=== PATIENT | female | born 1990 | race Caucasian/White ===

== ENCOUNTER → 2018-08-09 13:19 | Outpatient (CLI) | payer MEDICAID, SELFPAY ==
[2018-08-14 13:24] LABS: HPV Reflexed? NOT INDICATED
== END ==
PROVIDERS: Visit Provider Obstetrics & Gynecology
DX: Z12.4 Encounter for screening for malignant neoplasm of cervix (principal)
CPT/HCPCS: 88175; G0145

== ENCOUNTER 2020-02-07 16:14 | Emergency (ER) | payer MEDICAID, SELFPAY ==
[2020-02-07 16:16] VITALS: BP 140/75; PULSE 132; RESP 20; TEMP 37.1; O2SAT 98; BMI 27.0
--- NOTE | 2020-02-07 16:42 | ED.VIS.GEN ---
History of Present Illness Chief Complaint: Fever Detail of Chief Complaint: Fever, cough, sore throat Informant: Patient Onset: Days - 5 days Narrative: Patient reports becoming ill on February 01. She went to work on the , however left early due to body aches, fever, and weakness. She was seen by her doctor the following day. Rapid strep and influenza swabs were reportedly negative. Patient states that she is confident she had a fever on Monday and Monday, but did not have a thermometer at that time to check it. She felt somewhat better Monday so did go back to work. She bought a thermometer on that day and has been monitoring her temperature since that time. Over the past 2 days her temperature has not gotten above 99. Patient states she woke yesterday with no voice and still feeling very fatigued and weak. She continues to have cough with yellow to green sputum production. She has mild pain in the left lower lungs. Symptoms continued today. She tried a virtual online visit with [facility] and they encouraged her to come in because they were not able to auscultate her lungs and do a further exam. Patient does have 3 small children at home. She states her 5-year-old has developed a mild cough, but no one else has been ill. - Past Medical History (1) Anxiety Status: Chronic (2) Heartburn Status: Chronic (3) Migraines Status: Chronic Past Medical History - Allergies and Home Meds Allergies/Adverse Reactions: Allergies Iodinated Contrast Media [Iodinated Contrast Media - IV Dye] Allergy (Verified 02/07/20 16:15) Anaphylaxis latex Allergy (Verified 02/07/20 16:15) Rash mepivacaine HCl [From Carbocaine] Allergy (Verified 02/07/20 16:15) Swelling Primary Care Physician: Care Physician,No Primary [NON-STAFF] - Doctors: PCP in [place] Prior records reviewed: Yes Lives: With Family Smoking Status: Former smoker Review of Systems General: Reports: Chills, Fever, Subjective Eyes: Denies: Visual changes - bilaterally ENT: Reports: Sore throat. Denies: Bilateral ear pain Cardiovascular: Reports: Chest pain Respiratory: Reports: Dyspnea, Cough, Sputum Gastrointestinal: Reports: Vomiting - Posttussive vomiting x1 yesterday. Denies: Abdominal pain, Diarrhea Musculoskeletal: Reports: Myalgias. Denies: Extremity Pain Skin: Denies: Rash Neurological: Reports: Weakness, Parasthesia Psych: Denies: Depression Allergy: Denies: Uticaria Physical Exam Vital Signs/Narrative: Vital Signs Temp Pulse Resp BP Pulse Ox 02/07/20 16:16 98.7 F 132 H 20 H 140/75 H 98 Inital Vital Signs reviewed: Yes General: Well nourished, Well developed Head: Normocephalic Eyes: Perrl, EOMI ENT: Moist mucous membranes, TM's clear, - - Mild posterior pharyngeal drainage. Uvula midline. No tonsillar enlargement. Neck: No lymphadenopathy Cardiovascular: Tachycardia Respiratory: No distress, CTA bilaterally Abdomen: Soft, Nontender, Hypoactive bowel sounds Extremities: Nontender Skin: Normal color, No rash Neurological: Alert, Oriented x3 Psychological: Normal affect Diagnostic/Tx/Re-eval Impressions Chest X-Ray 02/07/20 16:50 IMPRESSION: Normal x-ray examination of the chest. Electronically Signed: Torey Vasquez MD at 17:20 EDT Tel , Service support , 02/07/20 16:50 Chest 1 View (Portable) [RAD] Stat 02/07/20 17:00 Mucosa - Nasopharyngeal Influenza Types A,B Direct FA (GRACIELA) - Final 02/07/20 17:00 Mucosa - Throat Group A Streptococcus Rapid Screen - Preliminary Laboratory Results 02/07/20 02/07/20 02/07/20 17:05 17:05 17:05 WBC 6.8 RBC 4.27 Hgb 12.9 Hct 36.9 L MCV 86.4 MCH 30.2 MCHC 35.0 RDW Std Deviation 35.7 RDW Coeff of Cabrera 11.4 L Plt Count 302 MPV 9.3 Immature Gran % (Auto) 0.300 Neut % (Auto) 90.0 H Lymph % (Auto) 8.3 L Gordon % (Auto) 1.2 Eos % (Auto) 0.1 Baso % (Auto) 0.1 Absolute Neuts (auto) 6.1 Absolute Lymphs (auto) 0.56 L Nucleated RBC % 0 Differential Comment Platelet Estimate ADEQUATE RBC Morphology NORM C+C Sodium 139 Potassium 3.9 Chloride 110 H Carbon Dioxide 23.0 Anion Gap 6 BUN 10 Creatinine 0.77 Estim Creat Clear Calc 96.13 Est GFR (MDRD) Af Amer 113 Est GFR (MDRD) Non-Af 94 BUN/Creatinine Ratio 13.0 Glucose 141 H Lactic Acid Calcium 8.8 Serum , Qual NEGATIVE Urine Color Urine Clarity Urine pH Ur Specific [place] Urine Protein Urine Glucose (UA) Urine Ketones Urine Occult Blood Urine Nitrite Urine Bilirubin Urine Urobilinogen Ur Leukocyte Esterase Urine RBC Urine WBC Ur Squamous Epith Cells Urine Bacteria Urine Mucus 02/07/20 02/07/20 17:05 18:25 WBC RBC Hgb Hct MCV MCH MCHC RDW Std Deviation RDW Coeff of Cabrera Plt Count MPV Immature Gran % (Auto) Neut % (Auto) Lymph % (Auto) Gordon % (Auto) Eos % (Auto) Baso % (Auto) Absolute Neuts (auto) Absolute Lymphs (auto) Nucleated RBC % Differential Comment Platelet Estimate RBC Morphology Sodium Potassium Chloride Carbon Dioxide Anion Gap BUN Creatinine Estim Creat Clear Calc Est GFR (MDRD) Af Amer Est GFR (MDRD) Non-Af BUN/Creatinine Ratio Glucose Lactic Acid 1.7 Calcium Serum , Qual Urine Color Yellow Urine Clarity Clear Urine pH 8.0 Ur Specific [place] 1.010 Urine Protein Negative Urine Glucose (UA) 50 H Urine Ketones Negative Urine Occult Blood Negative Urine Nitrite Negative Urine Bilirubin Negative Urine Urobilinogen Normal Ur Leukocyte Esterase 500 H Urine RBC 0 SEEN Urine WBC 5-10 SEEN Ur Squamous Epith Cells 0-5 SEEN Urine Bacteria 0 SEEN Urine Mucus 0 SEEN - Medical Decision Making She was given Toradol, IV fluids, Tylenol here. On repeat evaluation she is feeling improved. Heart rate is down around 120. Test results are discussed with her. I did advise her at this time that symptoms are consistent with a viral upper respiratory infection. We did discuss that this could be coronavirus, however at this time she is not ill enough to require hospital admission and therefore I cannot test for it. She voices understanding and agreement. She will be given information on how to self monitor at home and to call her physician if her symptoms worsen. ED Disposition - Plan for ED Patient: Disposition: Home or Assisted Living Diagnosis: Viral syndrome Instructions: VIRAL SYNDROME (Adult) Referrals: Tyler Hutchins MD [Primary Care Provider] -
--- NOTE | 2020-02-07 16:50 | RAD_ITS ---
STUDY: X-RAY CHEST REASON FOR EXAM: Female, 29 years old. COUGH, FEVER TECHNIQUE: Single AP portable view of the chest. COMPARISON: None. FINDINGS: The lungs are clear and expanded. There is no demonstrated pleural abnormality. Normal size heart. Normal mediastinum and temi. Normal visualized pulmonary arteries. Normal visualized aortic arch and descending thoracic aorta. Normal visualized thoracic spine. Normal visualized ribs, clavicles, and shoulders. There is no demonstrated abnormality of the visualized soft tissue structures of the upper abdomen. RAD/Chest 1 View (Portable) IMPRESSION: Normal x-ray examination of the chest. Electronically Signed: Torey Vasquez MD at 17:20 EDT Tel , Service support ,
[2020-02-07] MEDS: 0.9% Normal Saline 1,000 ML 1000 ML IV (17:00)
[2020-02-07 17:09] VITALS: BP 122/66; PULSE 116; RESP 20; TEMP 37.1; O2SAT 100
[2020-02-07] MEDS: Ketorolac 30 MG/ML Syringe IV (17:16)
[2020-02-07 17:23] LABS: Absolute Lymphocyte Count 0.56 X10^3/uL (0.83-4.51); Absolute Neutrophil Count 6.1 X10^3/uL (2.0-7.7); Basophil# 0.01 X10^3/uL; Basophil% 0.1 % (0-1); Eosinophil# 0.01 X10^3/uL; Eosinophils% 0.1 % (0-5); Hematocrit 36.9 % (37-47); Hemoglobin 12.9 g/dL (12.0-15.0); Lymphocyte # 0.56 X10^3/ul (4.0); Lymphocyte % 8.3 % (19-41); Mean Corpuscular Hgb 30.2 pg (27.0-32.0); Mean Corpuscular Volume 86.4 fL (81-99); Mean Platelet Vol. 9.3 fl (6.2-12.0); Monocyte# 0.08 X10^3/uL; Monocyte% 1.2 % (0-10); NRBC Flagged by Analyzer 0 % (0-5); Neutrophil # 6.09 X10^3/uL (2.7-7.7); POSITIVE DIFFERENTIAL YES; Platelet Count 302 K/mm3 (150-450); RBC Distribution Width CV 11.4 % (11.6-14.6); RBC Distribution Width SD 35.7 fl (35.1-43.9); Red Blood Count 4.27 M/mm3 (4.2-5.4); White Blood Count 6.8 K/mm3 (4.4-11.0)
[2020-02-07 17:38] LABS: Internal QC Validated? YES +Cl - CLEAR BKGD; Pregnancy, Serum, hCG Quali. NEGATIVE Negative
[2020-02-07 17:40] LABS: Anion Gap 6 (5-15); BUN 10 mg/dL (7-18); Calcium,Total 8.8 mg/dL (8.5-10.1); Chloride 110 mmol/L (98-107); Creatinine, Serum 0.77 mg/dL (0.55-1.02); EST Glomerular Filtration Rate 94 mL/min (>60); Est Glom Filt Rate - Afr Amer 113 mL/min (>60); Estimated Creatinine Clearance 96.13 ml/min; Glucose 141 mg/dL (74-106); Potassium 3.9 mmol/L (3.5-5.1); Sodium Level 139 mmol/L (136-145)
[2020-02-07 17:42] LABS: Differential Indicated SCAN CRITERIA MET
[2020-02-07 17:46] LABS: Lactic Acid 1.7 mmol/L (0.4-1.9)
[2020-02-07 18:07] LABS: Platelet Estimate ADEQUATE (ADEQ); Red Cell Morphology NORM C+C NORMAL (NORM C&C)
[2020-02-07 18:34] VITALS: BP 123/65; PULSE 120; RESP 18; TEMP 37.1; O2SAT 96
[2020-02-07] MEDS: 0.9% Normal Saline 1,000 ML 999 ML IV (18:35)
[2020-02-07 18:43] LABS: Bacteria 0 SEEN /hpf (None Seen); Color, Urine Yellow (Yellow); Glucose, Dipstick 50 mg/dl (Normal); Ketone-Dipstick Negative (Negative); Leukocyte Esterase-Dipstick 500 /ul (Negative); Mucous, Urine 0 SEEN /hpf (<or=2+); Nitrite-Dipstick Negative (Negative); Occult Blood-Urine Negative /ul (Negative); Protein-Dipstick Negative (Negative); Red Blood Cells-Urine 0 SEEN /hpf (0-5); Urine Bilirubin Dipstick Negative (Negative); Urine Clarity Clear (Clear); Urine Urobilinogen Normal (Normal)
[2020-02-07 18:50] LABS: Squamous Epithelial Cells - UA 0-5 SEEN /hpf (5-10); White Blood Cells 5-10 SEEN /hpf (0-5)
[2020-02-07 19:12] VITALS: BP 136/64; PULSE 116; RESP 18; O2SAT 99
[2020-02-07] MEDS: Acetaminophen 500 MG Tablet 1000 MG PO (19:13)
--- NOTE | 2020-02-11 14:01 | ED.RN ---
MICRO FINDINGS DISCUSSED WITH DR. ALAS, MESSAGE LEFT FOR PATIENT TO RETURN CALL BACK TO ED TO DISCUSS HER STATUS.
--- NOTE | 2020-02-11 15:09 | ED.RN ---
PATIENT CALLS BACK TO ED STATING THAT SHE FEELS BETTER, STILL SICK, BUT BETTER. PATIENT ALSO STATES THAT SHE WAS TESTED FOR COVID-19 IN [facility]. PATIENT MADE AWARE THAT IF SHE WORSENS THAT SHE SHOULD BE SEEN.
== END 2020-02-07 19:19 | disposition home or self-care (01) ==
PROVIDERS: Emergency Provider Emergency Medicine; PCP Internal Medicine Rheumatology
DX: B34.9 Viral infection, unspecified (principal); Z87.891 Personal history of nicotine dependence
CPT/HCPCS: 71045; 80048; 81001; 83605; 84703; 85025; 87040; 87076; 87086; 87088; 87804; 87880; 96361; 96374; 99284; J7030

== ENCOUNTER → 2020-09-24 | Outpatient (CLI) | payer MEDICAID, SELFPAY ==
[2020-09-24 12:09] VITALS: BMI 26.4
[2020-09-24 15:10] LABS: Bacteria 0 SEEN /hpf (None Seen); Mucous, Urine 0 SEEN /hpf (<or=2+); Red Blood Cells-Urine 0 SEEN /hpf (0-5); White Blood Cells 0 SEEN /hpf (0-5)
[2020-09-24 15:19] LABS: Color, Urine Yellow (Yellow); Glucose, Dipstick Normal (Normal); Ketone-Dipstick Negative (Negative); Leukocyte Esterase-Dipstick Negative /ul (Negative); Nitrite-Dipstick Negative (Negative); Occult Blood-Urine Negative /ul (Negative); Protein-Dipstick Negative (Negative); Urine Bilirubin Dipstick Negative (Negative); Urine Clarity Sl. Cloudy (Clear); Urine Urobilinogen Normal (Normal)
[2020-09-24 15:32] LABS: Squamous Epithelial Cells - UA 0-5 SEEN /hpf (5-10)
== END | disposition home or self-care (01) ==
LOC: LABSPEC 15:09
PROVIDERS: PCP Internal Medicine Rheumatology; Visit Provider Physician Assistant
DX: M54.5 Low back pain (principal); R39.15 Urgency of urination
CPT/HCPCS: 81001; 87086; 87088

== ENCOUNTER → 2020-10-05 | Outpatient (CLI) | payer MEDICAID, SELFPAY ==
[2020-10-05 12:01] VITALS: BMI 27.9
[2020-10-13 21:50] LABS: HPV APTIMA, High Risk Positive (Negative)
== END | disposition home or self-care (01) ==
LOC: LABSPEC 13:53
PROVIDERS: PCP Internal Medicine Rheumatology; Referring Provider Obstetrics & Gynecology; Visit Provider Obstetrics & Gynecology
DX: Z12.4 Encounter for screening for malignant neoplasm of cervix (principal)
CPT/HCPCS: 87624; 88175; G0145

== ENCOUNTER 2021-12-08 10:21 | Outpatient (CLI) | payer MEDICAID, SELFPAY ==
[2021-12-09 22:07] LABS: Chlamydia By Nucleic Acid AMP Positive (Negative)
[2021-12-10 11:31] LABS: Gonococcus By Nucleic Acid AMP Negative (Negative)
[2021-12-11 16:25] LABS: HPV APTIMA, High Risk Negative (Negative)
== END 2021-12-08 23:59 | disposition short-term general hospital (02) ==
LOC: LABSPEC 10:25
PROVIDERS: PCP Internal Medicine Rheumatology; Referring Provider Nurse Practitioner Women's Health; Visit Provider Nurse Practitioner Women's Health
DX: N89.8 Other specified noninflammatory disorders of vagina (principal); Z12.4 Encounter for screening for malignant neoplasm of cervix
CPT/HCPCS: 87070; 87205; 87491; 87591; 87624; 88175; G0145

== ENCOUNTER → 2022-03-29 | Outpatient (CLI) | payer MEDICAID, SELFPAY ==
[2022-03-30 22:06] LABS: Chlamydia By Nucleic Acid AMP Negative (Negative)
[2022-03-31 09:55] LABS: Gonococcus By Nucleic Acid AMP Negative (Negative)
== END | disposition home or self-care (01) ==
LOC: LABSPEC 10:22
PROVIDERS: PCP Internal Medicine Rheumatology; Visit Provider Nurse Practitioner Women's Health
DX: Z11.3 Encounter for screening for infections with a predominantly sexual mode of transmission (principal)
CPT/HCPCS: 87491; 87591

== ENCOUNTER → 2022-06-02 | Outpatient (CLI) | payer MEDICAID, SELFPAY ==
--- NOTE | 2022-06-02 12:36 | US_ITS ---
STUDY: ULTRASOUND OF THE FEMALE PELVIS - COMPLETE REASON FOR EXAM: Female, 31 years old. Pelvic pain LMP: None TECHNIQUE: Transabdominal and Transvaginal TECHNICAL QUALITY: Adequate. COMPARISON: None. FINDINGS: The uterus is anteverted and is in a midline position. The uterus measures 9.1 cm x 5.9 cm x 4.9 cm. Normal uterine cervix. The endometrium measures 2.6 mm in thickness, and is hyperechoic. There is no demonstrated endometrial mass. There is no demonstrated myometrial mass. I.U.D. - The patient does have an I.U.D. . The right ovary is visualized. The right ovary measures 2.8 cm x 2.7 cm x 2.1 cm. There is no right ovarian cyst or ovarian mass. There is no visualized right adnexal mass or complex lesion. There is normal arterial and normal venous vascularity. The left ovary is visualized. The left ovary measures 2 cm x 2.4 cm x 1.7 cm. There is no left ovarian cyst or ovarian mass. There is no visualized left adnexal mass or complex lesion. There is normal arterial and normal venous vascularity. There is no fluid in the cul-de-sac. The pre void volume of the bladder was 568 ml. US/Pelvic (Non ) IMPRESSION: IUD is seen within the endometrium. No abnormality is seen. Electronically Signed: Dre Bang MD at 14:40 EDT ,
--- NOTE | 2022-06-02 12:36 | US_ITS ---
STUDY: ULTRASOUND OF THE FEMALE PELVIS - COMPLETE REASON FOR EXAM: Female, 31 years old. Pelvic pain LMP: None TECHNIQUE: Transabdominal and Transvaginal TECHNICAL QUALITY: Adequate. COMPARISON: None. FINDINGS: The uterus is anteverted and is in a midline position. The uterus measures 9.1 cm x 5.9 cm x 4.9 cm. Normal uterine cervix. The endometrium measures 2.6 mm in thickness, and is hyperechoic. There is no demonstrated endometrial mass. There is no demonstrated myometrial mass. I.U.D. - The patient does have an I.U.D. . The right ovary is visualized. The right ovary measures 2.8 cm x 2.7 cm x 2.1 cm. There is no right ovarian cyst or ovarian mass. There is no visualized right adnexal mass or complex lesion. There is normal arterial and normal venous vascularity. The left ovary is visualized. The left ovary measures 2 cm x 2.4 cm x 1.7 cm. There is no left ovarian cyst or ovarian mass. There is no visualized left adnexal mass or complex lesion. There is normal arterial and normal venous vascularity. There is no fluid in the cul-de-sac. The pre void volume of the bladder was 568 ml. US/Transvaginal Non- IMPRESSION: IUD is seen within the endometrium. No abnormality is seen. Electronically Signed: Dre Bang MD at 14:40 EDT ,
== END | disposition home or self-care (01) ==
LOC: US 12:35
PROVIDERS: PCP Family Medicine Sports Medicine; Referring Provider Nurse Practitioner Women's Health; Visit Provider Nurse Practitioner Women's Health
DX: R10.2 Pelvic and perineal pain (principal)
CPT/HCPCS: 76830; 76856

== ENCOUNTER → 2022-06-21 | Outpatient (CLI) | payer MEDICAID, SELFPAY ==
--- NOTE | 2022-06-21 14:24 | BI_ITS ---
MAMMOGRAPHY - BILATERAL DIAGNOSTIC REASON FOR EXAM: Female, 31 years old. 2-3 week history of right breast lump at the 11 to 12 o''clock position. PERTINENT HISTORY: Non-contributory. TECHNIQUE: Digital bilateral breast silviano (3D mammographic acquisition) in the CC and MLO projections. 2-D mediolateral oblique (MLO) and craniocaudad (CC) views of both breasts were obtained. CAD: Full Field Digital Mammography with Computer Added Detection was performed. COMPARISON: Comparison is made with prior outside examination of 02/15/2017. FINDINGS: Breast Composition: The breasts are heterogeneously dense, which may obscure small masses. There are no dominant masses or suspicious calcifications. No other significant abnormalities are identified. There has been no significant change since the prior study. BI/DIAG MAMM W/CAD, BILAT IMPRESSION: Stable bilateral diagnostic mammogram. With the patient''s history of a right breast lump, correlation with ultrasound is recommended. ASSESSMENT CATEGORY: BIRADS Category 0: Incomplete. Need additional imaging evaluation. A letter regarding these results will be sent to the patient by the facility within 30 days. Approximately 10% of breast cancers are not detected by mammography. A normal mammogram should not delay biopsy of a clinically suspicious abnormality. Electronically Signed: Dre Bang MD at 8:25 EDT ,
--- NOTE | 2022-06-21 14:24 | US_ITS ---
STUDY: ULTRASOUND BREAST - RIGHT REASON FOR EXAM: Female, 31 years old. Palpable lump in the right breast. TECHNIQUE: Axial and longitudinal images of the RIGHT breast were performed with a high resolution ultrasound transducer. # OF IMAGES: 26 COMPARISON: Comparison is made with prior mammogram done earlier in the day. FINDINGS: RIGHT Breast: The retroareolar region of the right breast was examined with ultrasound. No sonographic abnormality is seen. US/Breast Limited Unilateral IMPRESSION: No sonographic abnormality is seen. ASSESSMENT CATEGORY: BIRADS Category 1: Negative. A letter regarding these results will be sent to the patient by the facility within 30 days. Electronically Signed: Dre Bang MD at 8:26 EDT ,
== END | disposition home or self-care (01) ==
LOC: OPBI 14:23
PROVIDERS: PCP Family Medicine Sports Medicine; Referring Provider Nurse Practitioner Women's Health; Visit Provider Nurse Practitioner Women's Health
DX: N63.10 Unspecified lump in the right breast, unspecified quadrant (principal); R92.2 Inconclusive mammogram
CPT/HCPCS: 77062; 76642; 77066; G0279

== ENCOUNTER → 2022-08-08 | Outpatient (CLI) | payer MEDICAID, SELFPAY ==
[2022-08-11 04:07] LABS: Chlamydia By Nucleic Acid AMP Negative (Negative)
[2022-08-11 13:50] LABS: Gonococcus By Nucleic Acid AMP Negative (Negative)
== END | disposition home or self-care (01) ==
LOC: LABSPEC 16:25
PROVIDERS: PCP Family Medicine Sports Medicine; Visit Provider Obstetrics & Gynecology
DX: Z20.2 Contact with and (suspected) exposure to infections with a predominantly sexual mode of transmission (principal)
CPT/HCPCS: 87491; 87591